=== PATIENT | female | born 1965 | race Caucasian/White ===

== ENCOUNTER 2020-06-09 10:09 | Emergency (ER) | payer BC, SELFPAY ==
[2020-06-09 11:28] LABS: Urine Blood NEGATIVE (NEG); Urine Glucose 2+ (NEG); Urine Protein NEGATIVE (NEG)
[2020-06-09] MEDS ORDERED: KETOROLAC 30 MG/ML INJ ONE (11:35)
[2020-06-09 11:53] LABS: Absolute Lymphocytes (CBC) 1.2 K/uL (0.7-4.9); Basophils % 0.7 % (0-1.3); Hematocrit 41.9 % (36.0-45.0); Lymphocytes % 21.2 % (15.3-44.8); MPV 9.5 fL (7.6-11.3); RBC Red Blood Cell Count 4.74 M/uL (3.86-4.86)
[2020-06-09 12:08] LABS: BUN Blood Urea Nitrogen 10 mg/dL (7-18); Bicarbonate 32 mmol/L (21-32); Glucose Level 339 mg/dL (74-106); Potassium 4.1 mmol/L (3.5-5.1); Sodium Level 135 mmol/L (136-145)
[2020-06-09] MEDS ORDERED: MORPHINE 4 MG/ML SYR ONE (12:58)
[2020-06-09] MEDS ORDERED: NA CHLORIDE 0.9% 1,000 ML ONE (13:03)
--- NOTE | 2020-06-09 13:21 | EDPHYS ---
Physician Documentation [facility] Name: Lyla Young Age: 55 yrs Sex: Female : 1965 Arrival Date: 06/09/2020 Time: 10:12 Bed 14 Private MD: Mj Montez T ED Physician Dewey Dee HPI: 06/09 14:26 This 55 yrs old Female presents to ER via Ambulatory with complaints of kb Abdominal Pain, Back Pain. 14:26 The patient presents with pain that is acute, with no known mechanism of injury. The kb symptoms are located in the right low back. The pain radiates to the right lower quadrant and right hamstring. Severity of symptoms: At their worst the symptoms were moderate, in the emergency department the symptoms are unchanged. The patient has not experienced similar symptoms in the past. The patient has not recently seen a physician. 14:27 Onset: The symptoms/episode began/occurred 1 week(s) ago. Associated signs and kb symptoms: Pertinent positives: abdominal pain. The problem was sustained without known cause. Modifying factors: The patient symptoms are alleviated by nothing, the patient symptoms are aggravated by standing. Pt states when she stands too long she gets tightness in her right low back/buttock that irritates her sciatic nerve and radiates down her leg. States she recently got a new job that involves a lot of standing so she started getting that tightness/pain. States the pain is radiating to right lower quadrant this time so she wanted to make sure there wasn't something else going on. 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 - Social history:: Smoking status: Patient denies any tobacco usage or history of. ROS: 14:25 Constitutional: Negative for fever, chills, and weight loss, Cardiovascular: Negative kb for chest pain, palpitations, and edema, Respiratory: Negative for shortness of breath, cough, wheezing, and pleuritic chest pain, : Negative for injury, bleeding, discharge, and swelling, MS/Extremity: Negative for injury and deformity, Skin: Negative for injury, rash, and discoloration, Neuro: Negative for headache, weakness, numbness, tingling, and seizure. 14:25 Abdomen/GI: Positive for abdominal pain, diarrhea. 14:25 Back: Positive for pain at rest, pain with movement, of the right low back. Exam: 14:25 Constitutional: This is a well developed, well nourished patient who is awake, alert, kb and in no acute distress. Head/Face: Normocephalic, atraumatic. Respiratory: Respirations even and unlabored. No increased work of breathing, no retractions or nasal flaring. Skin: Warm, dry with normal turgor. Normal color. MS/ Extremity: Pulses equal, no cyanosis. Neurovascular intact. Full, normal range of motion. Neuro: Awake and alert, GCS 15, oriented to person, place, time, and situation. Moves all extremities. Normal gait. 14:25 Abdomen/GI: Inspection: abdomen appears normal, Bowel sounds: normal, Palpation: soft, in all quadrants, mild abdominal tenderness, in the right lower quadrant. 14:25 Back: pain, that is moderate, of the right low back, ROM is normal, normal spinal alignment noted. 14:29 Neuro: Orientation: is normal, Mentation: is normal, Motor: is normal, Sensation: is kb normal, Gait: is steady. Vital Signs: 10:30 BP 178 / 110; Pulse 114; Resp 18 S; Temp 97.6(TE); Pulse Ox 100% on R/A; Weight 106.59 ca1 kg (R); Height 5 ft. 4 in. (162.56 cm) (R); Pain 7/10; 13:01 BP 159 / 84; Pulse 103; Resp 16 S; Pulse Ox 98% on R/A; jd3 14:07 BP 162 / 86; Pulse 96; Resp 15 S; Pulse Ox 98% on R/A; jd3 10:30 Body Mass Index 40.34 (106.59 kg, 162.56 cm) ca1 MDM: 11:06 Patient medically screened. kb 13:19 Data reviewed: vital signs, nurses notes. Data interpreted: Pulse oximetry: on room air kb is 98 %. Interpretation: normal. Counseling: I had a detailed discussion with the patient and/or guardian regarding: the historical points, exam findings, and any diagnostic results supporting the discharge/admit diagnosis, lab results, radiology results, the need for outpatient follow up, a family practitioner, to return to the emergency department if symptoms worsen or persist or if there are any questions or concerns that arise at home. 06/09 11:15 Order name: Basic Metabolic Panel; Complete Time: 12:19 kb 06/09 11:15 Order name: CBC with Diff; Complete Time: 12:03 kb 06/09 11:15 Order name: CT Stone Protocol kb 06/09 11:21 Order name: Urine Dipstick--Ancillary (enter results); Complete Time: 11:29 em1 06/09 11:15 Order name: IV Saline Lock; Complete Time: 11:46 kb 06/09 11:15 Order name: Labs collected and sent; Complete Time: 11:47 kb 06/09 11:15 Order name: Urine Dipstick-Ancillary (obtain specimen); Complete Time: 11:16 kb Administered Medications: 11:46 Drug: TORadol 30 mg Route: IVP; Site: right antecubital; jd3 12:45 Follow up: Response: No adverse reaction jd3 12:49 Drug: morphine 4 mg Route: IVP; Site: right antecubital; jd3 13:45 Follow up: Response: No adverse reaction; RASS: Alert and Calm (0) jd3 12:49 Drug: NS 0.9% 1000 ml Route: IV; Rate: 1000 ml; Site: right antecubital; jd3 14:08 Follow up: Response: No adverse reaction; IV Status: Completed infusion jd3 Disposition: 06/10 07:22 Co-signature as Attending Physician, Dewey Dee MD I agree with the assessment and kdr plan of care. Disposition: 06/09/20 13:20 Discharged to Home. Impression: Low back pain, Lower abdominal pain, unspecified. - Condition is Stable. - Discharge Instructions: Abdominal Pain, Adult, [id number], Back Pain, Adult, [id number]. - Prescriptions for Zofran 4 mg Oral Tablet - take 1 tablet by ORAL route every 6 hours As needed; 20 tablet. Cyclobenzaprine 10 mg Oral Tablet - take 1 tablet by ORAL route every 8 hours As needed; 21 tablet. Diclofenac Sodium 75 mg Oral Tablet, Delayed Release (E.C.) - take 1 tablet by ORAL route 2 times per day As needed; 30 tablet. - Medication Reconciliation Form, Thank You Letter, Antibiotic Education, Prescription Opioid Use form. - Follow up: Emergency Department; When: As needed; Reason: Worsening of condition. Follow up: Private Physician; When: 2 - 3 days; Reason: Recheck today's complaints, Continuance of care, Re-evaluation by your physician. Signatures: Dispatcher [employer] EDVA Sydnee Sanchez, JONAH-C JONAH-Dewey Corrales MD MD kdr Davies, Jonathon RN RN jd3 AcMaria L oneal RN RN ca1 Corrections: (The following items were deleted from the chart) 06/09 14:08 13:20 06/09/2020 13:20 Discharged to Home. Impression: Low back pain; Lower abdominal jd3 pain, unspecified. Condition is Stable. Forms are Medication Reconciliation Form, Thank You Letter, Antibiotic Education, Prescription Opioid Use. Follow up: Emergency Department; When: As needed; Reason: Worsening of condition. Follow up: Private Physician; When: 2 - 3 days; Reason: Recheck today's complaints, Continuance of care, Re-evaluation by your physician. kb
--- NOTE | 2020-06-09 13:21 | ER ---
Nurse's Notes [facility] Name: Lyla Young Age: 55 yrs Sex: Female : 1965 Arrival Date: 06/09/2020 Time: 10:12 Bed 14 Private MD: Mj Montez T Diagnosis: Low back pain;Lower abdominal pain, unspecified Presentation: 06/09 10:30 Chief complaint: Patient states: R lower back pain x 1 week. Went to the Chiropractor [facility] on Saturday and Saturday. Still hurting and now it is hurting on my RLQ and R groin area. The R lower back pain radiates to the R leg. Reports diarrhea today. Coronavirus screen: Client denies travel out of the [place] in the last 14 days. At this time, the client does not indicate any symptoms associated with coronavirus-19. Ebola Screen: Patient negative for fever greater than or equal to 101.5 degrees Fahrenheit, and additional compatible Ebola Virus Disease symptoms Patient denies exposure to infectious person. Patient denies travel to an Ebola-affected area in the 21 days before illness onset. No symptoms or risks identified at this time. Initial Sepsis Screen: Does the patient meet any 2 criteria? No. Patient's initial sepsis screen is negative. Does the patient have a suspected source of infection? No. Patient's initial sepsis screen is negative. Risk Assessment: Do you want to hurt yourself or someone else? Patient reports no desire to harm self or others. Onset of symptoms was June 09, 2020. 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 - Social history:: Smoking status: Patient denies any tobacco usage or history of. Screenin:09 Abuse screen: Denies threats or abuse. Nutritional screening: No deficits noted. jd3 Tuberculosis screening: No symptoms or risk factors identified. Fall Risk Ambulatory Aid- None/Bed Rest/Nurse Assist (0 pts). Gait- Normal/Bed Rest/Wheelchair (0 pts) Mental Status- Oriented to own ability (0 pts). Total Downey Fall Scale indicates No Risk (0-24 pts). Assessment: 11:23 General: Appears in no apparent distress. uncomfortable, Behavior is calm, cooperative, jd3 appropriate for age. Pain: Complains of pain in right lower quadrant Quality of pain is described as sharp, tender. Neuro: Level of Consciousness is awake, alert, obeys commands, Oriented to person, place, time, situation. Cardiovascular: Denies chest pain, Capillary refill < 3 seconds Patient's skin is warm and dry. Respiratory: Airway is patent Respiratory effort is even, unlabored, Respiratory pattern is regular, symmetrical, Denies cough, shortness of breath. GI: Abdomen is round non-distended, Bowel sounds present X 4 quads. Abd is soft and non tender X 4 quads. Abdomen is tender to palpation in right lower quadrant Reports lower abdominal pain, diarrhea. : No signs and/or symptoms were reported regarding the genitourinary system. EENT: No signs and/or symptoms were reported regarding the EENT system. Derm: Skin is intact, Skin is dry, Skin is normal, Skin temperature is warm. Musculoskeletal: Circulation, motion, and sensation intact. Range of motion: intact in all extremities. 13:01 Reassessment: Patient appears in no apparent distress at this time. No changes from jd3 previously documented assessment. Patient and/or family updated on plan of care and expected duration. Pain level reassessed. Patient is alert, oriented x 3, equal unlabored respirations, skin warm/dry/pink. 14:06 Reassessment: Patient appears in no apparent distress at this time. Patient and/or jd3 family updated on plan of care and expected duration. Pain level reassessed. Patient is alert, oriented x 3, equal unlabored respirations, skin warm/dry/pink. even and steady gait to front of ER Patient states feeling better. Vital Signs: 10:30 BP 178 / 110; Pulse 114; Resp 18 S; Temp 97.6(TE); Pulse Ox 100% on R/A; Weight 106.59 ca1 kg (R); Height 5 ft. 4 in. (162.56 cm) (R); Pain 7/10; 13:01 BP 159 / 84; Pulse 103; Resp 16 S; Pulse Ox 98% on R/A; jd3 14:07 BP 162 / 86; Pulse 96; Resp 15 S; Pulse Ox 98% on R/A; jd3 10:30 Body Mass Index 40.34 (106.59 kg, 162.56 cm) ca1 ED Course: 10:12 Patient arrived in ED. ds1 10:12 Mj Montez MD is Private Physician. ds1 10:32 Triage completed. ca1 10:33 Sydnee [facility]C [facility]. kb 10:33 Dewey Dee MD is Attending Physician. kb 10:33 Arm band placed on right wrist. ca1 11:09 Cornell Diego RN is Primary Nurse. jd3 11:09 Patient has correct armband on for positive identification. Placed in gown. Bed in low jd3 position. Call light in reach. Side rails up X 1. Pulse ox on. NIBP on. 11:25 Missed attempt(s): 22 gauge in right forearm. kj1 11:30 CT Stone Protocol In Process Unspecified. EDMS 11:38 Initial lab(s) drawn, by me, sent to lab. Inserted saline lock: 22 gauge in right kj1 antecubital area, using aseptic technique. 14:07 No provider procedures requiring assistance completed. IV discontinued, intact, jd3 bleeding controlled, No redness/swelling at site. Pressure dressing applied. Administered Medications: 11:46 Drug: TORadol 30 mg Route: IVP; Site: right antecubital; jd3 12:45 Follow up: Response: No adverse reaction jd3 12:49 Drug: morphine 4 mg Route: IVP; Site: right antecubital; jd3 13:45 Follow up: Response: No adverse reaction; RASS: Alert and Calm (0) jd3 12:49 Drug: NS 0.9% 1000 ml Route: IV; Rate: 1000 ml; Site: right antecubital; jd3 14:08 Follow up: Response: No adverse reaction; IV Status: Completed infusion jd3 Outcome: 13:20 Discharge ordered by . kb 14:07 Discharged to home ambulatory, with family. jd3 14:07 Condition: stable 14:07 Discharge instructions given to patient, Instructed on discharge instructions, follow up and referral plans. medication usage, Demonstrated understanding of instructions, follow-up care, medications, Prescriptions given X 3. 14:08 Patient left the ED. jd3 Signatures: Dispatcher [employer] EDMS Sydnee Sanchez, SUNI MCKENZIE-Ayaka Hampton ds1 Cornell Diego RN RN jd3 Maria L Causey RN RN ca1 Racquel Sanchez kj1
--- NOTE | 2020-06-09 14:45 | RAD REPORT ---
EXAM DESCRIPTION: CT - Stone Protocol - 06/09/2020 11:30 am CLINICAL HISTORY: Abdominal pain. COMPARISON: None. TECHNIQUE: Computed axial tomography of the abdomen pelvis was obtained without oral or IV contrast. Lack of IV and oral contrast limits evaluation of solid organs, bowel, and vessels. Coronal reformat uriah images were obtained and reviewed. All CT scans are performed using dose optimization technique as appropriate and may include automated exposure control or mA/KV adjustment according to patient size. FINDINGS: A renal calculus is not seen. An ureteral calculus is not noted. A bladder calculus is not present. The liver, spleen, pancreas and adrenals appear grossly normal There is no evidence of diverticulitis. The appendix appears normal 6 millimeter nodule left lower lobe. There is questionable faint calcification. Spondylosis involves the lumbar spine resulting in marked spinal stenosis IMPRESSION: Negative for a genitourinary calculus 6 millimeter nodule left lower lobe. A followup CT chest in 6-12 months recommended . Sydnee of the emergency room was notified June 09, 2020
[2020-06-09 14:57] VITALS: TEMP 97.6
[2020-06-09 14:58] VITALS: O2SAT 98
[2020-06-09 14:59] VITALS: BP 162/86
== END 2020-06-09 14:08 | disposition home or self-care (01) ==
LOC: ER 10:09
DX: R10.31 Right lower quadrant pain (principal); I10 Essential (primary) hypertension
CPT/HCPCS: 36415; 74176; 76377; 80048; 81003; 85025; 96361; 96374; 96375; 99284; J7030